=== PATIENT | female | born 1995 | race Caucasian/White ===

== ENCOUNTER 2023-02-10 20:33 | Emergency (ER) | payer OTHER ==
[2023-02-10 20:36] VITALS: BMI 34.3
[2023-02-10] MEDS ORDERED: SODIUM CHLORIDE 0.9% 500 ML INFUS.BAG IV ONE (21:40)
[2023-02-10] MEDS ORDERED: ACETAMINOPHEN 1000 MG/100 ML BAG IVPB ONE (21:40)
[2023-02-10] MEDS ORDERED: ACETAMINOPHEN INJECTION 100 ML IVPB ONE (21:49)
[2023-02-10 22:32] LABS: BASO % 0.5 % (0-2.0); EOS % 0.3 % (0-4.5); HEMATOCRIT 42.7 % (32.4-45.2); HEMOGLOBIN 14.3 GM/dL (10.7-15.3); LYMPH % 20.8 % (8-40); MCHC 33.4 g/dl (32.0-36.0); MEAN CELL VOLUME 77.8 fl (80-96); NEUT % 74.4 % (42.8-82.8); PLATELET COUNT 354 10^3/uL (134-434); RBC 5.48 M/mm3 (3.60-5.2); RDW 14.5 % (11.6-15.6)
[2023-02-10 22:43] LABS: POTASSIUM 4.1 mmol/L (3.5-5.1)
[2023-02-10 22:45] LABS: ALBUMIN 3.6 g/dl (3.4-5.0); CALCIUM 8.9 mg/dL (8.5-10.1)
[2023-02-10 22:46] LABS: BLOOD UREA NITROGEN 10.6 mg/dL (7-18); MAGNESIUM 1.8 mg/dL (1.8-2.4)
[2023-02-10 22:48] LABS: CREATININE 0.7 mg/dL (0.55-1.3)
[2023-02-10 22:50] LABS: BILIRUBIN,TOTAL 0.5 mg/dL (0.2-1); TOT PROT 7.9 g/dl (6.4-8.2)
[2023-02-10] MEDS ORDERED: ONDANSETRON 4 MG/2 ML VIAL IVPUSH ONE (23:02)
[2023-02-11] MEDS ORDERED: ONDANSETRON 4 MG/2 ML VIAL ONE (00:25)
[2023-02-11 01:06] VITALS: BP 121/87; PULSE 80; RESP 18; TEMP 99
[2023-02-11 02:20] LABS: EPI CELLS 7 /uL (0-25.1); HYALINE CASTS 0 /uL (0-3.1); URINE APPEARANCE CLEAR; URINE BACTERIA 231 /uL (0-1359); URINE BILIRUBIN NEGATIVE (NEGATIVE); URINE COLOR YELLOW; URINE GLUCOSE (UA) NEGATIVE (NEGATIVE); URINE KETONE 1+ (NEGATIVE); URINE LEUK ESTERASE NEGATIVE (NEGATIVE); URINE NITRITE NEGATIVE (NEGATIVE); URINE PROTEIN NEGATIVE (NEGATIVE); URINE RBC 13 /uL (0-23.9); URINE WBC 13 /uL (0-25.8)
[2023-02-11] MEDS ORDERED: CEPHALEXIN MONOHYDRATE 500 MG CAPSULE (UD) PO ONE (04:23)
[2023-02-11] MEDS ORDERED: metroNIDAZOLE 500 MG TABLET PO ONE (04:33)
[2023-02-11] MEDS ORDERED: DOXYCYCLINE HYCLATE 100 MG CAPSULE PO ONE ×2 (04:33→04:55)
[2023-02-11] MEDS ORDERED: metroNIDAZOLE 250 MG TABLET ONE (04:55)
[2023-02-11] MEDS ORDERED: cefTRIAXone SODIUM 1 GM VIAL ONE (04:56)
== END 2023-02-11 05:15 | disposition home or self-care (01) ==
LOC: JER 20:33
PROC: 3E033NZ Introduction of Analgesics, Hypnotics, Sedatives into Peripheral Vein, Percutaneous Approach (ICD-10-PCS; principal; 2023-02-10)
PROC: 3E023GC Introduction of Other Therapeutic Substance into Muscle, Percutaneous Approach (ICD-10-PCS; 2023-02-11)
DX: R10.33 Periumbilical pain (principal); R63.0 Anorexia; R11.0 Nausea; R19.7 Diarrhea, unspecified; N73.9 Female pelvic inflammatory disease, unspecified
CPT/HCPCS: 36415; 74177-TC; 80053; 81003; 83690; 83735; 84703; 85025; 87081; 87086; 87491; 87591; 87661; 93005; 93010; 99285-25; Q9967